=== PATIENT | male | born 2000 | race African-American/Black ===

== ENCOUNTER 2024-04-25 00:11 | Emergency (ER) | payer MEDICAID, OTHER ==
[~2024-04-25] VITALS: Ht 177.8 cm; Wt 116.7 kg
[2024-04-25 00:20] VITALS: BP 127/9
[2024-04-25 01:47] VITALS: PULSE 72; RESP 20; O2SAT 96
[2024-04-25] MEDS ORDERED: IBUP-1456 PO (02:01)
== END 2024-04-25 04:31 | disposition home or self-care (01) ==
LOC: ER 00:11
DX: S83.91XA Sprain of unspecified site of right knee, initial encounter (principal); Q74.1 Congenital malformation of knee; Z90.89 Acquired absence of other organs; X50.1XXA Overexertion from prolonged static or awkward postures, initial encounter; Y93.67 Activity, basketball; Y92.89 Other specified places as the place of occurrence of the external cause; Y99.8 Other external cause status
CPT/HCPCS: 29505; 73562